=== PATIENT | male | born 1985 | race Caucasian/White ===

== ENCOUNTER 2025-01-04 07:12 | Day surgery (SDC) | payer MEDICARE, OTHER ==
[2024-12-30 14:31] VITALS: BMI 25.7
[~2025-01-04 07:12] MED LIST: HYDROmorphone 0.5 MG/0.5 ML SYRINGE IVP PRN; LIDOCAINE 1% (10MG/ML) FOR IV START INTRADERMA PRN; ceFAZolin 2 GM in DEXTROSE 5% IN WATER 50 ML IVPB PRN
[2025-01-04 07:58] VITALS: TEMP 98.5
[2025-01-04] MEDS: ACETAMINOPHEN TAB 500 MG TAB PO PRN (08:01)
[2025-01-04] MEDS: ONDANSETRON 4 MG/2 ML VIAL IVP ONE (08:15)
[2025-01-04] MEDS: LACTATED RINGERS 1,000 ML IV SCH (08:15)
[2025-01-04] MEDS: DEXAMETHASONE SOD PHOSPHATE 4 MG/ML 1 ML VIAL IV ONE (08:16)
[2025-01-04] MEDS: IV FLUID CONTINUATION 1,000 ML IV ONE (08:18)
[2025-01-04] MEDS: SCOPOLAMINE 1 MG/72 HR PATCH TRANSDERM STA (08:25)
[2025-01-04] MEDS: fentaNYL (PF) 50 MCG/ML 2 ML AMP IVP PRN (08:33)
[2025-01-04] MEDS: MIDAZOLAM 2 MG/2 ML VIAL IV PRN (08:33)
--- NOTE | 2025-01-04 09:03 | P.ANPRN ---
Procedure Note - Anesthesia - Nerve Block Performed Bilateral Erector Spinae Single Time Out Performed: Yes Date of Procedure: 01/04/25 Procedure Start Time: : Procedure Stop Time: :43 Location of Patient: PreOp Indication: Acute Post-Operative Pain, Requested by Surgeon Sedation Type: Sedate with meaningful contact maintained Preparation: Sterile Prep, Sterile Dressing Position: Prone Catheter: None Needle Types: Facet Needle Gauge: 20 Ultrasound used to visualize needle placement: Yes Ultrasound used to observe medication spread: Yes Injectate: Other (see comment) (Ropivacaine 0.25% 30 ml + decadron 2 mg per side) Blood Aspirated: No Pain Paresthesia on Injection Noted: No Resistance on Injection: Normal Image Stored and Saved: Yes Events: Uneventful and Well Tolerated
[2025-01-04] MEDS: HEPARIN SODIUM,PORCINE 5,000 UNIT/ML 1 ML VIAL SQ PRN (11:55)
[2025-01-04 13:59] VITALS: RESP 16
[2025-01-04 14:45] VITALS: BP 124/90; PULSE 100
== END 2025-01-04 14:52 | disposition home or self-care (01) ==
LOC: OR 07:12
PROVIDERS: ATTEND Surgery
DX: Z53.8 Procedure and treatment not carried out for other reasons (principal); K40.90 Unilateral inguinal hernia, without obstruction or gangrene, not specified as recurrent; G89.18 Other acute postprocedural pain
CPT/HCPCS: J2250; J1644; J1100; J2405; J3010